=== PATIENT | female | born 1955 | race Caucasian/White ===

== ENCOUNTER 2024-07-22 05:38 | Observation (INO) ==
[~2024-07-22 05:38] MED LIST: NS 0.45% 1000 ml BAG 1,000 ML IV SCH; Naloxone 0.4 mg VIAL 0.4 mg/ml 1 ml VIAL IV PRN; fentaNYL 100 mcg/2 ml 50 MCG/ML VIAL IV PRN
[2024-07-22] MEDS ORDERED: Tranexamic Acid 1 GM/100ML BAG 2,000 MG/200 ML BAG IV ONE (06:08)
[2024-07-22] MEDS ORDERED: ceFAZolin 2 GM PREMIX 2 GM/50 ML BAG ONE (06:08)
[2024-07-22] MEDS: Lactated Ringers 1000 ml BAG 1,000 ML IV SCH ×2 (06:21→12:22)
[2024-07-22 06:25] LABS: Rapid COVID-19 Molecular Undetected (Undetected)
[2024-07-22] MEDS ORDERED: Lidocaine 2% PF 5 ML VIAL ONE (07:01)
[2024-07-22] MEDS ORDERED: Midazolam 2 mg/2 ml VIAL 1 mg/ml 2 ml VIAL (2 mg) ONE (07:01)
[2024-07-22] MEDS ORDERED: Phenylephrine IV 10 MG/ML 1 ml VIAL ONE (07:01)
[2024-07-22] MEDS ORDERED: Propofol 10 MG/ML 20 ML BTL ONE (07:01)
[2024-07-22] MEDS ORDERED: KETAMINE HCL 10 MG/ML 20 ml VIAL (200 MG) ONE (07:03)
[2024-07-22] MEDS ORDERED: Rocuronium 50 mg VIAL 10 mg/ml 5 ml VIAL (50 mg) ONE (07:36)
[2024-07-22] MEDS ORDERED: fentaNYL 250 mcg/5 ml 50 MCG/ML 5 ml VIAL (250 MCG) ONE (07:36)
[2024-07-22] MEDS ORDERED: Dexamethasone IV 4 MG/ML VIAL 1 ml VIAL ONE (08:10)
[2024-07-22] MEDS ORDERED: Ondansetron 4 mg VIAL 2 MG/ML 2 ml VIAL ONE ×2 (08:10→10:40)
[2024-07-22] MEDS ORDERED: Bupivacaine 0.25% SDV 30 ML ONE (08:16)
[2024-07-22] MEDS ORDERED: HYDROmorphone 0.5 MG/0.5 ML SYRINGE ONE (09:05)
[2024-07-22] MEDS ORDERED: fentaNYL 100 mcg/2 ml 50 MCG/ML VIAL ONE ×2 (09:38→09:52)
[2024-07-22] MEDS ORDERED: Ondansetron 4 mg VIAL 2 MG/ML 2 ml VIAL IV PRN (10:05)
[2024-07-22] MEDS ORDERED: Ondansetron ODT 4 mg TAB 4 MG TAB PO PRN (10:05)
[2024-07-22] MEDS ORDERED: Calcium Carb (TUMS) 500 mg CHEW TAB PO PRN (10:05)
[2024-07-22] MEDS ORDERED: Lactulose 30 ml UDC PO PRN (10:05)
[2024-07-22] MEDS ORDERED: Morphine 2 MG/ML SYRINGE IV PRN (10:05)
[2024-07-22] MEDS ORDERED: Magnesium Hydroxide LIQ 30 ML UDC PO PRN (10:05)
[2024-07-22] MEDS: Ondansetron 4 mg VIAL 2 MG/ML 2 ml VIAL IV PRN (10:40)
[2024-07-22] MEDS: BUPIVACAINE **LIPOSOME/PF 13.3 MG/ML (266MG/ 20ML) VIAL (RESTRICTED) INFIL ONE (12:22)
[2024-07-22] MEDS: Buffered Lidocaine 1% SYRIN 1 ml INTRADERM ONE (12:22)
[2024-07-22] MEDS: Acetaminophen IV 1 GM/100ML 1,000 MG/100 ML BAG IV ONE (12:22)
[2024-07-22] MEDS: ceFAZolin 2 GM PREMIX 2 GM/50 ML BAG IV SCH (15:32)
[2024-07-22] MEDS: Magnesium Hydroxide LIQ 30 ML UDC PO SCH (21:05)
[2024-07-23] MEDS: Mometasone/Formoter 200/5 MDI INH SCH (07:06)
[2024-07-23 07:07] LABS: Hematocrit 32.4 % (35-45); Mean Platelet Volume 8.1 fL (7.5-11.2); Platelet Count 314 10^3/uL (150-450)
[2024-07-23 07:43] LABS: Calcium 8.7 mg/dL (8.6-10.3); Creatinine, Serum 1.06 mg/dL (0.51-0.95); Potassium 4.2 mmol/L (3.5-5.0); eGFR CKD-EPI 56.5 (>60)
[2024-07-23] MEDS: Vitamin THERAPEUTIC TAB PO SCH (08:43)
== END 2024-07-23 13:45 | disposition home or self-care (01) ==
LOC: SSU 05:38 → OR 05:38
PROVIDERS: ADMIT Orthopaedic Surgery Sports Medicine; ATTEND Orthopaedic Surgery Sports Medicine